=== PATIENT | male | born 1965 | race Caucasian/White ===

== ENCOUNTER 2024-02-04 21:34 | Emergency (ER) | payer BC ==
[2024-02-04] MEDS ORDERED: Nitroglycerin 0.4 MG Tab.SL ONE (21:35)
[2024-02-04] MEDS: Aspirin 81 MG Tab.Chew PO ONE (21:40)
[2024-02-04] MEDS: Nitroglycerin 0.4 MG Tab.SL SL PRN (21:41)
[2024-02-04] MEDS: Labetalol 20 MG/4 ML Syringe IVPUSH ONE (21:48)
[2024-02-04 21:53] LABS: BASOPHILS ABSOLUTE AUTO 0.05 K/uL (0.00-0.20); BASOPHILS PERCENT AUTO 0.8 % (0.0-2.0); EOSINOPHILS ABSOLUTE AUTO 0.31 K/uL (0.00-0.50); EOSINOPHILS PERCENT AUTO 4.7 % (0.0-5.0); HEMATOCRIT 41.4 % (39.0-49.0); HEMOGLOBIN 13.6 g/dL (13.1-16.8); LYMPHOCYTES PERCENT AUTO 39.8 % (10.0-50.0); MEAN CORPUSCULAR HEMOGLOBIN 27.3 pg (28.2-33.3); MEAN CORPUSCULAR HGB CONC 32.9 g/dL (31.7-36.0); MEAN CORPUSCULAR VOLUME 83.1 fL (84.0-98.0); MONOCYTES ABSOLUTE AUTO 0.38 K/uL (0.00-1.00); MONOCYTES PERCENT AUTO 5.8 % (2.0-14.0); NEUTROPHILS ABSOLUTE AUTO 3.19 K/uL (1.40-7.00); NEUTROPHILS PERCENT AUTO 48.9 % (45.0-80.0); PLATELET COUNT,PLT 253 K/uL (150-350); RED BLOOD CELL COUNT 4.98 M/uL (4.33-5.41); RED CELL DISTRIBUTION WIDTH 14.7 % (11.2-14.1); WHITE BLOOD CELL COUNT,WBC 6.5 K/uL (4.0-10.2)
[2024-02-04] MEDS: Sodium Chloride 0.9% 10 ML Syringe FLUSH PRN (22:06)
[2024-02-04 22:14] LABS: ALANINE AMINOTRANSFERASE,ALT 36 U/L (12-78); ALBUMIN 3.4 g/dL (3.4-5.0); ALKALINE PHOSPHATASE 108 IU/L (46-116); ASPARTATE AMNIOTRANSFERASE,AST 18 U/L (15-37); BILIRUBIN TOTAL 0.5 mg/dL (0.2-1.0); BLOOD UREA NITROGEN,BUN 14 mg/dL (7-18); CALCIUM 9.2 mg/dL (8.5-10.1); CARBON DIOXIDE,CO2 24.5 mmol/L (21.0-32.0); CHLORIDE,CL 98 mmol/L (98-107); CREATININE 1.16 mg/dL (0.51-1.17); GLUCOSE RANDOM 285 mg/dL (70-99); MAGNESIUM 1.9 mg/dL (1.8-2.4); POTASSIUM,K 3.7 mmol/L (3.5-5.1); PRO B-TYPE NATRIUR PEPT,BNPPRO 1022 pg/mL (0-125); PROTEIN TOTAL,TP 7.6 g/dL (6.4-8.2); SODIUM,NA 137 mmol/L (136-145)
[2024-02-04 22:15] LABS: ANION GAP 18.2 meq/L (7-15); ESTIMATED GFR 73 mL/min (>=60)
[2024-02-04] MEDS: Metoprolol Tartrate 25 MG Tab PO ONE (22:15)
[2024-02-04] MEDS: Heparin Sodium 5,000 Units/ML Vial IVPUSH ONE (22:41)
[2024-02-04] MEDS: Heparin Sodium/0.45% NaCl 500 ML IV SCH (22:46)
[2024-02-04 23:33] LABS: HEMOGLOBIN A1C 6.4 % (4.3-5.7)
== END 2024-02-04 23:49 ==
LOC: LL.ED 21:34
DX: I24.9 Acute ischemic heart disease, unspecified (principal); I25.10 Atherosclerotic heart disease of native coronary artery without angina pectoris; I50.9 Heart failure, unspecified; E11.9 Type 2 diabetes mellitus without complications; E66.9 Obesity, unspecified; Z68.35 Body mass index [BMI] 35.0-35.9, adult
CPT/HCPCS: 36415; 71045; 80053; 83036; 83605; 83735; 83880; 84484; 85025; 85379; 93005; 96365; 96375; 99285-25; A9270-GY; J1644; J1920; J3490